=== PATIENT | female | born 1985 | race Caucasian/White ===

== ENCOUNTER 2018-10-28 07:34 | Emergency (ER) | payer BC ==
[~2018-10-28] VITALS: Ht 162.6 cm; Wt 86.2 kg
[2018-10-28 07:39] VITALS: Ht 162.6 cm; Wt 86.2 kg
[2018-10-28 09:41] VITALS: BP 139/87
== END 2018-10-28 09:41 | disposition home or self-care (01) ==
LOC: ED 07:34
DX: S83.92XA Sprain of unspecified site of left knee, initial encounter (principal); F41.9 Anxiety disorder, unspecified; G43.911 Migraine, unspecified, intractable, with status migrainosus; V49.9XXA Car occupant (driver) (passenger) injured in unspecified traffic accident, initial encounter; Y93.I9 Activity, other involving external motion; Y92.413 State road as the place of occurrence of the external cause; Y99.8 Other external cause status